=== PATIENT | female | born 1980 | race Caucasian/White ===

== ENCOUNTER 2020-04-29 19:42 | Emergency (ER) | payer SELFPAY ==
[2020-04-29 19:50] VITALS: BP 152/98; PULSE 91; RESP 16; TEMP 37.1; O2SAT 100; BMI 21.9
--- NOTE | 2020-04-29 20:36 | ED_ITS ---
HPI - General Adult General: Chief complaint: Dental/Oral Stated complaint: earache/dental pain Time Seen by Provider: 04/29/20 19:56 Source: patient Mode of arrival: ambulatory Limitations: no limitations History of Present Illness: HPI narrative: Patient is a 40-year-old female who presents to ED today with complaints of severe right-sided facial pain that has been intermittent over the past week and a half. Patient tells me pain seems to come on very suddenly and is very sharp and excruciating. She states the sharp excruciating pain will often last seconds to a minute but she will often have a more dull pain in between exacerbations. She does tell me all day yesterday she seemed to for the most part be symptom-free. She is also had other longer periods where she was not having symptoms as well. She feels like she is having an earache as well as pain in her mandibular region but does not feel as if it is a toothache. She has not had any injury or trauma to the face. No neurological complaints. Denies headache or neck pain. Onset (ago): day(s) Location: face Severity: severe Pain Consistency: intermittent Relieving factors: none Associated symptoms: Deny chest pain, dyspnea, headache(s), nausea, rash or vomiting Review of Systems Const: Denies: fever(s), chills, body aches or fatigue Eyes: Denies: change in vision, blurry vision, photophobia, eye discomfort, eye discharge, floaters or seeing flashes ENMT: Reports: ear or mastoid pain and sinus pain (R sided facial pain); Denies: throat pain, enlarged tonsils, odynophagia, swelling of lips/tongue, oral sores, dental pain, ear discharge, change in hearing, tinnitus, nasal discharge, nasal congestion, nasal obstruction or post nasal drip Card: Denies: chest pain Resp: Denies: dyspnea, productive cough or non-productive cough GI: Denies: nausea or vomiting Musc: Denies: neck pain Skin/Breast: Denies: rash Neuro: Denies: headache(s), numbness in extremities, weakness in extremities or sensory changes All/Imm: Denies: facial swelling or seasonal rhinorrhea PFSH ED PFSH: Social History Smoking and tobacco status: current every day smoker Physical Exam Const: COMMON NORMALS: average body habitus, patient oriented x3, no limitations, healthy appearing, alert and well nourished GENERAL APPEARANCE: cooperative and in distress (appears very uncomfortable ) ORIENTATION/CONSCIOUSNESS: Yes oriented to person, Yes oriented to place and Yes oriented to time HENMT: COMMON NORMALS: normocephalic, atraumatic, hearing grossly normal bilaterally, external ears normal, EAC's normal, TM's normal bilaterally, Normal external nose present, moist oral mucous membranes, oropharynx normal and gingiva normal HEAD & SCALP: normal to inspection, normocephalic and atraumatic FACE & SINUS: sinuses nontender and other (pain around trigeminal nerve; no clicking/popping of TMJ; see below) NOSE: Normal external nose present, Normal nares present and No nasal polyps present EXTERNAL EAR: Yes external ears normal EXTERNAL AUDITORY CANAL: EAC's normal TYMPANIC MEMBRANE: TM's normal bilaterally MOUTH: Normal oral and palatal mucosa present, lip normal and tongue normal TEETH & GINGIVA: Yes fair dentition (no obvious abscess/caries/signs of active infection ) THROAT: posterior oropharynx normal, tonsils normal and uvula midline OTHER: pt is able to open mandible and move side by side Eye: COMMON NORMALS: EOMs intact bilaterally, conjunctivae normal and no scleral icterus CONJUNCTIVA: Yes conjunctivae normal Neck/C-Spine: COMMON NORMALS: full ROM, no lymphadenopathy and no meningeal signs Resp: COMMON NORMALS: normal respiratory effort Neuro: KIM COMA SCALE: document GCS findings Kim coma scale eye opening: Spontaneous [place] coma scale verbal response: Orientated Kim coma scale motor response: Obey commands Kim coma scale total score: 15 COMMON NORMALS: patient oriented x3, CN's II-XII intact bilaterally, moves all extremities, no focal motor deficits, no sensory deficits noted and gait normal SENSORIUM/ORIENTATION: Yes alert, Yes oriented to person, Yes oriented to place and Yes oriented to time MENINGEAL SIGNS: Yes no meningeal signs Skin: COMMON NORMALS: no rashes or lesions noted GENERAL SKIN EXAM: no rashes or lesions noted Course Vital Signs: Vital signs: Vital Signs Temperature 98.8 F 04/29/20 19:50 Pulse Rate 91 04/29/20 19:50 Respiratory Rate 20 H 04/29/20 21:02 Blood Pressure 152/98 04/29/20 19:50 Pulse Oximetry 99 04/29/20 21:02 MDM - General Adult MDM Narrative: Medical decision making narrative: hx is suggestive of trigeminal neuralgia; she does state it seems to be worse with talking/eating/etc; she has no evidence for dental infection or otic infection; other possible DDx TMJ syndrome although I think unlikely; she has no neurological deficits; will treat pts pain and place her on carbamazepine; will have CM set her up with PCP in case symptoms do not improve or worsen; return to ED precautions given Discharge Plan Discharge Patient Disposition: Home, Self-Care Clinical Impression: Trigeminal neuralgia Condition: Stable Prescriptions: New carbamazepine 200 mg tablet 200 mg PO BID Qty: 60 RF: 0 hydrocodone-acetaminophen 5-325 mg tablet 1 tab PO Q6H PRN (Reason: pain) Qty: 14 RF: 0 Discharge Orders: Discharge Order (Routine); Ordered 04/29/20 Ordered By: Lauryn Pa Referrals: Juan Rios MD [Primary Care Provider] - Patient Instructions: Trigeminal Neuralgia (ED), Trigeminal Neuralgia Activity Restrictions/Additional Instructions: Case management should contact you shortly to set you up with a primary care provider in case symptoms do not improve. You may return to the emergency department at anytime for any worsening symptoms or other concerns you may have. Coding Level of Care Code ED Currency Machine Operator for Caryn Fwd Exam Detailed
[2020-04-29] MEDS: dexamethasone 10 mg/mL INJ 8 MG IM (21:00)
[2020-04-29 21:02] VITALS: RESP 20; O2SAT 99
[2020-04-29] MEDS: morphine 4 mg/mL SDV 1 mL IM (21:02)
[2020-04-29 23:32] VITALS: BP 132/88; PULSE 84; RESP 18; O2SAT 100
--- NOTE | 2020-04-30 01:16 | PC.NURSE ---
i agree with this assessment
--- NOTE | 2020-04-30 14:37 | DCPLANNER ---
relations manager had message to speak with patient about getting established with a primary care physician. relations manager called [phone], unable to speak with anyone at this time, there was no answer. Unable to leave a voicemail for patient at this time.
== END 2020-04-29 23:32 | disposition home or self-care (01) ==
PROVIDERS: Emergency Provider Physician Assistant; PCP General Practice
DX: G50.0 Trigeminal neuralgia (principal); F17.210 Nicotine dependence, cigarettes, uncomplicated
CPT/HCPCS: 12345; 99281; 99283; J1100; J2270

== ENCOUNTER 2023-05-25 18:20 | Emergency (ER) | payer SELFPAY ==
[2023-05-25 18:29] VITALS: BP 143/81; PULSE 127; RESP 14; TEMP 37.1; O2SAT 100; BMI 21.9
--- NOTE | 2023-05-26 02:10 | ED_ITS ---
HPI - General Adult General: Chief complaint: General Medical Stated complaint: sunburn Time Seen by Provider: 05/25/23 20:32 Source: patient Mode of arrival: ambulatory Limitations: no limitations History of Present Illness: Patient presents to the emergency department today for evaluation treatment of bilateral anterior abel discoloration and sunburn. Patient received a severe sunburn on 05/09 when [place] was [place] on the river. Patient states her anterior shins blistered and she had swelling and edema of the legs, ankles, and feet. She states she had to be in bed for days due to her pain and pain with ambulation. She eventually went to the urgent care who treated her for cellulitis with Bactrim and provided her Medihoney. Patient states that her pain is improved but, now that her blisters and skin have peeled, she has deep purple discoloration to her anterior shins bilaterally. Discoloration stops promptly at the superior ankle and does not affect the inferior portion of the knees. Calves bilaterally are spared. Patient received sunburn in other places but, did not discolor and did not blister though she does have light skin peeling noted to her extremities and chest. Patient states she has never had anything like this happen before. She presents because friends and family told her that it looks like her skin is still infected and she should be seen again. Review of Systems General: Reports: 10 or more systems reviewed and unremarkable except in HPI and below PFSH ED PFSH: Social History Smoking and tobacco status: current every day smoker Physical Exam Const: COMMON NORMALS: no acute distress, average body habitus and patient oriented x3 HENMT: COMMON NORMALS: normocephalic, atraumatic, hearing grossly normal bilaterally, Normal external nose present and moist oral mucous membranes HEAD & SCALP: normocephalic and atraumatic NOSE: Normal external nose present Eye: COMMON NORMALS: Equal, round and reactive pupils present, EOMs intact bilaterally and conjunctivae normal CONJUNCTIVA: Yes conjunctivae normal PUPIL: Yes Equal, round and reactive pupils present Neck/C-Spine: COMMON NORMALS: no JVD Lymph: LYMPHATIC: no lymphadenopathy noted Resp: COMMON NORMALS: normal respiratory effort, No retractions and No use of accessory muscles Cardio: COMMON NORMALS: no JVD, regular rate and regular rhythm RATE: regular rate RHYTHM: regular rhythm GI: COMMON NORMALS: Normal to inspection, nondistended, normoactive bowel sounds present : COMMON NORMALS: Yes no CVA tenderness BLADDER/KIDNEY EXAM: Yes no CVA tenderness Back/Pelvis: COMMON NORMALS: no CVA tenderness and thoraco-lumbar ROM normal Extremity: COMMON NORMALS: normal to inspection, full ROM and capillary refill normal Neuro: COMMON NORMALS: patient oriented x3 Psych: COMMON NORMALS: mental status grossly normal, Normal thought process present, cooperative, normal affect and activity/motor behavior normal THOUGHT PROCESS: Normal thought process present Skin: NARRATIVE SKIN EXAM: Patient currently has no edema of the lower extremities. She has no significant swelling of the feet. Patient with deep purple discoloration of the anterior shins bilaterally sparing the calves bilaterally. Discoloration stops promptly at the superior ankles and does not affect the inferior knees. Patient has obvious peeling of the skin in this area as well. Discoloration of the skin on the shins does alan with pressure and has a brisk capillary refill noted. No signs of residual blistering. No signs of open wounds. Skin is not noticeably warm to touch as in concern for infection. Course Vital Signs: Vital signs: Vital Signs Temperature 98.8 F 05/25/23 18:29 Pulse Rate 127 H 05/25/23 18:29 Respiratory Rate 14 05/25/23 18:29 Blood Pressure 143/81 05/25/23 18:29 Pulse Oximetry 100 05/25/23 18:29 Oxygen Delivery Me thod Room Air 05/25/23 18:29 MDM - General Adult Medical Decision Making Patient presents to the emergency department today for evaluation treatment of residual issues secondary to severe second-degree sunburn to the anterior shins bilaterally. This time, I do not think patient has any signs of infection. I believe this is more vascular discoloration of the skin. Patient shows no signs of open wounds or draining but, has quite a bit of skin peeling. She does not have any appreciable edema to the lower extremities or feet. She is ambulatory and weightbearing. Patient still has significant damage to the skin appreciated though it does seem like she is improving. I am requesting a follow-up with dermatology as I think she needs to be evaluated as this heals for potential s kin lesions or abnormalities secondary to severe UV damage. Until then, I encouraged the patient to continue applying creams and lotions to protect the skin and she is not to go outside with her legs exposed to UV light. Patient has no primary care doctor and had indicated some primary care concerns and I did offer to refer her to primary for follow-up to discuss other chronic issues she has. Differential Diagnosis UV skin damage, cellulitis, vascular injury, lower extremity edema, side effect of burn Discharge Plan Discharge Patient Disposition: Home Clinical Impression: History of sunburn, blistering Condition: Stable Prescriptions: No Action sulfamethoxazole-trimethoprim [Bactrim DS] 800-160 mg tablet 1 tab PO BID 10 Days Qty: 20 0RF MediHoney (honey) 80 % gel 1 applic topical BID Qty: 15 0RF carbamazepine 200 mg tablet 200 mg PO BID Qty: 60 0RF hydrocodone-acetaminophen 5-325 mg tablet 1 tab PO Q6H PRN (Reason: pain) Qty: 14 0RF Discharge Orders: Discharge ED (Routine); Ordered 05/25/23 Ordered By: Laina Leal Discharge Diet: Usual diet Discharge Activity: Increase activity as tolerated Patient Instructions: Second-Degree Burn (ED), Sunburn - Adult Activity Restrictions/Additional Instructions: Your examination today is more concerning for a vascular color change rather than an infection color change. I have requested a follow-up appointment with dermatology to continue monitoring the progression of the skin and to continue monitoring for any abnormal growths or areas of damage. I have also requested a primary care appointment as some of the symptoms you describe that you have been having for a while sound possibly autoimmune and would benefit from a work-up. Continue to provide care to the skin. Avoid any exposure to UV light and sunlight. Apply skin care products such as aloe and cream lotions for comfort. Coding Level of Care Code ED Expansion Envelope Maker Hand for Caryn Childers
--- NOTE | 2023-05-26 10:18 | DCPLANNER ---
online communications manager had message to schedule a follow up appointment for patient with dermatology. online communications manager is unable to refer patients to dermatology, patient needs the referral to dermatology to be from patients primary care physician. online communications manager called phone number [phone], unable to speak with patient at this a voicemail was left for patient to return case fitter phone call.
--- NOTE | 2023-05-26 10:44 | DCPLANNER ---
manager field service had message to speak with patient about getting established with a primary care physician. manager field service called patient, unable to speak with patient at this time. manager field service left a voicemail for patient to return registered nurse hh case manager phone call.
== END 2023-05-25 22:11 | disposition home or self-care (01) ==
PROVIDERS: Emergency Provider Physician Assistant
DX: S80.822A Blister (nonthermal), left lower leg, initial encounter (principal); S80.821A Blister (nonthermal), right lower leg, initial encounter; F17.200 Nicotine dependence, unspecified, uncomplicated; X30.XXXA Exposure to excessive natural heat, initial encounter
CPT/HCPCS: 99282

== ENCOUNTER 2023-09-29 09:34 | Outpatient (CLI) | payer OTHER, SELFPAY ==
--- NOTE | 2023-09-29 09:36 | MM_ITS ---
WS: [id number] BILATERAL 3D TOMOSYNTHESIS DIGITAL SCREENING MAMMOGRAPHY WITH CAD CLINICAL INFORMATION: SCREENING HISTORY: Screening mammogram. Chronic greenish nipple discharge when squeezed COMPARISON: Baseline TECHNIQUE: Bilateral CC and MLO views. FINDINGS: The breasts are composed of heterogeneous fibroglandular density tissue, which can limit the detectio n of small underlying mass lesions. Slightly spiculated asymmetric density with clustered suspicious calcifications upper outer LEFT breast posterior depth extending along the axillary tail. Recommend L EFT breast diagnostic mammography with magnification views and ultrasound. RIGHT breast is unremarkable. IMPRESSION: MM/[place] [id number] BI-RADS: 0-Incomplete: Need additional imaging evaluation FOLLOW UP: Need Additional Imaging Recommend LEFT breast diagnostic mammography with magnification views and ultra sound.
== END 2023-09-29 09:35 | disposition home or self-care (01) ==
LOC: RAD 09:34
PROVIDERS: Visit Provider Advanced Practice Midwife
DX: Z12.31 Encounter for screening mammogram for malignant neoplasm of breast (principal)
CPT/HCPCS: 77063; 77067

== ENCOUNTER 2023-10-22 13:10 | Outpatient (CLI) | payer OTHER, SELFPAY ==
--- NOTE | 2023-10-22 13:18 | MM_ITS ---
WS: [id number] LEFT 3D TOMOSYNTHESIS DIGITAL MAMMOGRAPHY WITH CAD CLINICAL INFORMATION: ABNORMAL MAMMO HISTORY: LEFT nipple discharge. Additional calcification views. COMPARISON: 09/29/2023 TECHNIQUE: 3 views of the left breast were obtained. FINDINGS: The left breast is composed of heterogeneous fibroglandular density tissue, which can limit the detec tion of small underlying mass lesions. Again seen are the clustered suspicious appearing calcificatio ns upper outer LEFT breast posterior depth extending along the axillary tail. No ultrasound abnormali ties in this area to target for biopsy. Recommend stereotactic guided biopsy of the clustered calcifi cations. ULTRASOUND BREAST LEFT TECHNIQUE: Ultrasound left breast focused area of concern. CLINICAL INFORMATION: ABNORMAL MAMMO FINDINGS: Ultrasound LEFT breast upper outer quadrant and at the areola. A few subcentimeter incidental cysts a t the 3 o'clock position. No suspicious parenchymal abnormalities in the upper outer quadrant to target for biopsy. Incidental ductal ectasia deep to the areola. No intraductal lesions. IMPRESSION: MM/[place] [id number] BI-RADS: 4-Suspicious Finding-Biopsy Should Be Considered FOLLOW UP: Stereotactic Biopsy Recommended Recommend stereotactic-guided biopsy of the clustered calcifications upper oute r LEFT breast.
== END 2023-10-22 13:11 | disposition home or self-care (01) ==
LOC: RAD 13:11
PROVIDERS: Visit Provider Advanced Practice Midwife
DX: R92.8 Other abnormal and inconclusive findings on diagnostic imaging of breast (principal); R92.1 Mammographic calcification found on diagnostic imaging of breast
CPT/HCPCS: 76642; 77061; G0279

== ENCOUNTER 2024-02-16 12:30 | Outpatient (CLI) | payer OTHER, SELFPAY ==
--- NOTE | 2024-02-16 12:53 | MM_ITS ---
WS: [id number] STEREOTACTIC LEFT BREAST BIOPSY WITH VACUUM ASSISTANCE HISTORY: ABNORMAL MAMMO CALCS COMPARISON: 10/22/2023 and 09/29/2023 Procedure, risks and complications were explained to the patient. Medications and prior radiographs a re reviewed. LEFT breast calcifications are located. Calcifications located to the upper outer quadrant towards ax illary tail. Calcifications are targeted in the craniocaudal projection. The skin is cleansed with Ch loraPrep and anesthetized with 1% buffered lidocaine. Deeper soft tissues anesthetized with a combina tion of lidocaine and epinephrine. Small dermatome is made. Needle advanced into the LEFT breast. Valente reotactic imaging reveals appropriate positioning adjacent calcifications. Multiple vacuum-assisted c ore biopsies are obtained. No complications were encountered. Post biopsy specimen radiograph reveals numerous calcifications. Biopsy clip is placed in the cavity. Post imaging reveals good placement of the clip. No migration. Pressures held for approximately 15 minutes. No bleeding. Dressing applied. Patient discharged with n o complications. There is no bleeding. With any questions or complications patient is to return. IMPRESSION: 1. Uncomplicated LEFT breast stereotactic biopsy. 2. Specimen contains numerous calcifications. 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 No in situ or invasive m alignancy identified. RECOMMENDATION: 6-month LEFT diagnostic mammogram follow-up.
--- NOTE | 2024-02-16 12:53 | MM_ITS ---
WS: [id number] STEREOTACTIC LEFT BREAST BIOPSY WITH VACUUM ASSISTANCE HISTORY: ABNORMAL MAMMO CALCS COMPARISON: 10/22/2023 and 09/29/2023 Procedure, risks and complications were explained to the patient. Medications and prior radiographs a re reviewed. LEFT breast calcifications are located. Calcifications located to the upper outer quadrant towards ax illary tail. Calcifications are targeted in the craniocaudal projection. The skin is cleansed with Ch loraPrep and anesthetized with 1% buffered lidocaine. Deeper soft tissues anesthetized with a combina tion of lidocaine and epinephrine. Small dermatome is made. Needle advanced into the LEFT breast. Valente reotactic imaging reveals appropriate positioning adjacent calcifications. Multiple vacuum-assisted c ore biopsies are obtained. No complications were encountered. Post biopsy specimen radiograph reveals numerous calcifications. Biopsy clip is placed in the cavity. Post imaging reveals good placement of the clip. No migration. Pressures held for approximately 15 minutes. No bleeding. Dressing applied. Patient discharged with n o complications. There is no bleeding. With any questions or complications patient is to return. IMPRESSION: 1. Uncomplicated LEFT breast stereotactic biopsy. 2. Specimen contains numerous calcifications. 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 No in situ or invasive m alignancy identified. RECOMMENDATION: 6-month LEFT diagnostic mammogram follow-up.
--- NOTE | 2024-02-16 12:53 | MM_ITS ---
WS: [id number] STEREOTACTIC LEFT BREAST BIOPSY WITH VACUUM ASSISTANCE HISTORY: ABNORMAL MAMMO CALCS COMPARISON: 10/22/2023 and 09/29/2023 Procedure, risks and complications were explained to the patient. Medications and prior radiographs a re reviewed. LEFT breast calcifications are located. Calcifications located to the upper outer quadrant towards ax illary tail. Calcifications are targeted in the craniocaudal projection. The skin is cleansed with Ch loraPrep and anesthetized with 1% buffered lidocaine. Deeper soft tissues anesthetized with a combina tion of lidocaine and epinephrine. Small dermatome is made. Needle advanced into the LEFT breast. Valente reotactic imaging reveals appropriate positioning adjacent calcifications. Multiple vacuum-assisted c ore biopsies are obtained. No complications were encountered. Post biopsy specimen radiograph reveals numerous calcifications. Biopsy clip is placed in the cavity. Post imaging reveals good placement of the clip. No migration. Pressures held for approximately 15 minutes. No bleeding. Dressing applied. Patient discharged with n o complications. There is no bleeding. With any questions or complications patient is to return. IMPRESSION: 1. Uncomplicated LEFT breast stereotactic biopsy. 2. Specimen contains numerous calcifications. MM/MM surgical specimen LT Pathology: Columnar cell hyperplasia with mild atypia. No in situ or invasive m alignancy identified. RECOMMENDATION: 6-month LEFT diagnostic mammogram follow-up.
== END 2024-02-16 12:31 | disposition home or self-care (01) ==
PROVIDERS: Visit Provider Advanced Practice Midwife
DX: R92.8 Other abnormal and inconclusive findings on diagnostic imaging of breast (principal); N60.91 Unspecified benign mammary dysplasia of right breast
CPT/HCPCS: 19081; 77065; 88305; J7050